=== PATIENT | female | born 1985 | race Caucasian/White ===

== ENCOUNTER 2017-03-03 12:43 | Emergency (ER) | payer OTHER ==
[~2017-03-03] VITALS: Ht 172.7 cm; Wt 71.2 kg
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
[~2017-03-03 12:43] MED LIST: IBUPROFEN PO; PHENERGAN W/CO120 ML PO; PREDNISONE5 M1 PO; ROBITUSSIN ALL118 ML PO; YAZ; ZITHROMAX PO
[2017-03-03] MEDS ORDERED: BCP (12:59)
== END 2017-03-03 15:33 | disposition home or self-care (01) ==
LOC: SED 12:43
DX: S39.012A Strain of muscle, fascia and tendon of lower back, initial encounter (principal); J45.909 Unspecified asthma, uncomplicated; V89.2XXA Person injured in unspecified motor-vehicle accident, traffic, initial encounter; Y92.410 Unspecified street and highway as the place of occurrence of the external cause
CPT/HCPCS: 72100; 99283